=== PATIENT | female | born 1960 | race Caucasian/White ===

== ENCOUNTER 2024-03-21 16:03 | Emergency (ER) | payer OTHER, SELFPAY ==
[2024-03-21 16:10] VITALS: BP 160/116
--- NOTE | 2024-03-21 19:01 | ED.GENMED ---
History of Present Illness
General
Chief Complaint: Skin Problem
Time Seen by Provider: 03/21/24 17:52
History of Present Illness
History of Present Illness:
64-year-old female presents the emergency department for evaluation of an intractable rash that has been worsening for the past 6 weeks. She is seen multiple outpatient specialists including allergy and dermatology with no definitive answers. She
states she did have a biopsy that suggested eczema and is awaiting lab work that was ordered by the [facility]. Has completed 2 rounds of steroids. Denies any new medications or soaps otherwise.
Past History
Past History
ED Past Medical History: Hypothyroidism and Psychiatric (Anxiety)
ED Past Surgical History: None
Social History
Tobacco: Non-smoker
Alcohol: Occasional
Personal:
Living: with family
Review of Systems
Review of Systems
Allergies reviewed?: Yes
All Other Systems: ROS reviewed and negative except as documented in HPI and ROS
Phy Exam
Physical Exam
Physical Exam:
GEN: Well appearing, NAD, WDWN
HEENT: Oral mucosa moist, no scleral icterus, no nasal congestion
Cardiac: Regular rate
Lung: No respiratory distress, no tachypnea
MSK: No gross deformity or injuries
Skin: Good color, no pallor or jaundice, widespread maculopapular exanthem to the entire torso anteriorly and posteriorly with some extremity involvement, no facial involvement
Neuro: AO x3, CN II-XII grossly intact. Visual mata intact x 4 bilat. No limb drift x 4. No limb ataxia x 4. No aphasia or dysarthria. Sensation intact x 4 extremities
Psych: Calm, cooperative
Course
Vital Signs
Initial and Last Documented VS:
Initial Vital Signs
Temp Pulse Resp BP Pulse Ox
98.2 F 97 18 160/116 100
03/21/24 16:10 03/21/24 16:10 03/21/24 16:10 03/21/24 16:10 03/21/24 16:10
Last Documented Vital Signs
Temp Pulse Resp BP Pulse Ox
98.2 F 95 18 170/105 98
03/21/24 16:10 03/21/24 19:23 03/21/24 19:23 03/21/24 19:23 03/21/24 19:23
MDM/Problems Addressed
MDM/Problems Addressed:
Unclear etiology, recommend she stop her topical steroids and continue with outpatient follow-up plan, will trial antihistamines at a high dose to decrease itching
*Critical Care Note
Total Time (30-74mins, 75-104mins- exclusive of procedures): Not Applicable
ED Attending Note
-
Portions of this chart may have been created with voice recognition software.� Occasional wrong word or��sound alike� substitutions may have occurred due to the inherent limitations of voice recognition software.
Discharge Plan
Departure
Patient Disposition: Home (Routine Discharge)
Date of Disposition: 03/21/24
Time of Disposition: 19:06
Patient with high blood pressure during this ER visit?: No
Discharge Problem:
Dermatitis
Instructions: Skin Rash (DC)
Prescriptions:
No Action
levothyroxine 25 MCG tablet
0.25 mcg PO DAILY
gabapentin 300 MG capsule
300 mg PO TID
fluoxetine [Prozac] 20 MG capsule
20 mg PO DAILY
Referrals:
UNKNOWN - PT DOES,NOT KNOW [Family Provider] -
Activity Restrictions/Additional Instructions:
At this time I cannot determine the cause of your rash
I feel another course of steroids would likely be detrimental
Hydroxyzine can be taken at night, however please consider taking 10mg cetirizine (Zyrtec) or 180mg fexofenadine (Patricia) three times daily to decrease itching
Keep your skin moisturized and stop the steroid creams at this time. Use emollients such as Cetafil or Eucerin
Follow up with your [employer] once your labs are done
If I receive a message from your [employer], I will call you to discuss if there are any recommendations
Interventions
Interventions:
*Risk Screen - Suicide Last Done: 03/21/24 16:10
*General Assessment Last Done: 03/21/24 16:10
*Neglect/Abuse Screening Last Done: 03/21/24 16:10
*ED COVID-19 Vaccine History Last Done: 03/21/24 16:10
*Nursing Disposition Last Done: 03/21/24 19:23
ED-Skin Assessment Last Done: 03/21/24 17:54
Discharge Date and Time
Discharge Date/Time: 03/21/24 19:25
Print Language: GREEK
[2024-03-21 19:23] VITALS: BP 170/105
== END 2024-03-21 19:25 | disposition home or self-care (01) ==
LOC: EMR 16:03
PROVIDERS: EMERGENCY PHYSICIAN Student in an Organized Health Care Education/Training Program
DX: L30.9 Dermatitis, unspecified (principal); F41.9 Anxiety disorder, unspecified; E03.9 Hypothyroidism, unspecified
CPT/HCPCS: 99282

== ENCOUNTER → 2024-11-18 09:55 | Outpatient (REF) | payer OTHER, SELFPAY | LOC: RAD 09:55 | PROVIDERS: ATTENDING PHYSICIAN Internal Medicine Rheumatology; FAMILY PHYSICIAN Family Medicine | DX: M19.049 Primary osteoarthritis, unspecified hand (principal) | CPT/HCPCS: 73130 ==

== ENCOUNTER → 2025-02-14 15:06 | Outpatient (REF) | payer MEDICARE, OTHER, SELFPAY | LOC: WDC 15:06 | PROVIDERS: ATTENDING PHYSICIAN Internal Medicine | DX: Z12.31 Encounter for screening mammogram for malignant neoplasm of breast (principal) | CPT/HCPCS: 77063; 77067 ==

== ENCOUNTER → 2025-02-23 08:53 | Outpatient (REF) | payer MEDICARE, OTHER, SELFPAY | LOC: RAD 08:53 | PROVIDERS: ATTENDING PHYSICIAN Hospitalist | DX: Z13.820 Encounter for screening for osteoporosis (principal); M81.0 Age-related osteoporosis without current pathological fracture | CPT/HCPCS: 77080 ==